=== PATIENT | male | born 1995 | race African-American/Black ===

== ENCOUNTER 2017-02-09 04:59 | Emergency (ER) | payer OTHER ==
[~2017-02-09] VITALS: Ht 185.4 cm; Wt 70.5 kg
--- NOTE | 2017-02-09 06:20 | REPUSA ---
HISTORY: Trauma. COMPARISON: Not provided. TECHNIQUE: Multiple thin section helically-acquired axially-displayed and helically acquired coronall y displayed computed tomographic images of the face are obtained from the mandible through the fronta l sinuses, with images obtained at soft tissue and bone window. 2D reformatted images were performed. FINDINGS: Acute right parasymphyseal fracture of the mandible. Acute oblique mildly displaced fracture of the right ascending ramus of the mandible. Overlying soft tissue edema or swelling. Chronic mucosal inflammatory changes in the maxillary sinuses and ethmoid air cells. Air-fluid level in the left maxillary sinus. IMPRESSION: Right mandible fractures as above. Effusion in the left maxillary sinus. Soft tissue edema. Chronic sinusitis. Thank you for your kind referral of this patient
--- NOTE | 2017-02-09 07:50 | REPUSA ---
HISTORY: Trauma. COMPARISON: None. TECHNIQUE: Multiple thin-section contiguous helically-acquired axially-displayed computed tomographic images of the cervical spine are obtained from skull base inferiorly through T1, with images filmed at soft tissue and bone window. 2D Sagittal and coronal reformatted images are performed. FINDINGS: There is normal cervical vertebral body height and alignment on this supine, non-weight bearing exam. Vertebral body mineralization is normal. All of the intervertebral disc spaces have normal height and contour. There is no herniated nucleus p ulposus, canal or foraminal stenosis. No paraspinal masses or collections. IMPRESSION: Normal CT of the cervical spine. Thank you for your kind referral of this patient.
[2017-02-09] MEDS ORDERED: LIDOCAINE 2% W/EPIN INJ 20ML **PRES FREE INJ ONE (08:15)
[2017-02-09] MEDS ORDERED: IBUPROFEN 600 MG TAB PO ONE (08:15)
[2017-02-09] MEDS ORDERED: PERCOCET 5MG/325MG TAB PO ONE (08:15)
[2017-02-09] MEDS ORDERED: AUGMENTIN 875 MG TAB PO ONE (08:15)
[2017-02-09] MEDS ORDERED: PERC5TAB12 PO (08:19)
[2017-02-09] MEDS ORDERED: AUGM875T28 PO (08:19)
[2017-02-09] MEDS ORDERED: IBUP-1022 PO (08:19)
[2017-02-09 08:56] VITALS: BP 131/69
== END 2017-02-09 09:00 | disposition home or self-care (01) ==
LOC: M ED 04:59
DX: S01.511A Laceration without foreign body of lip, initial encounter (principal); S02.609A Fracture of mandible, unspecified, initial encounter for closed fracture; J34.89 Other specified disorders of nose and nasal sinuses; Y04.0XXA Assault by unarmed brawl or fight, initial encounter; Y92.410 Unspecified street and highway as the place of occurrence of the external cause; Y93.9 Activity, unspecified; Y99.9 Unspecified external cause status; J32.9 Chronic sinusitis, unspecified

== ENCOUNTER 2018-04-25 18:29 | Emergency (ER) | payer OTHER | END 2018-04-25 21:20 | disposition home or self-care (01) | LOC: M ED 18:29 | DX: S03.41XA Sprain of jaw, right side, initial encounter (principal); S05.12XA Contusion of eyeball and orbital tissues, left eye, initial encounter; Y04.0XXA Assault by unarmed brawl or fight, initial encounter; Y92.008 Other place in unspecified non-institutional (private) residence as the place of occurrence of the external cause | CPT/HCPCS: 70110 ==

== ENCOUNTER 2021-10-21 22:50 | Emergency (ER) | payer OTHER ==
[~2021-10-21] VITALS: Ht 185.4 cm; Wt 68.6 kg
[~2021-10-21 22:50] MED LIST: AUGM875T28 PO; IBUP-1022 PO; PERC5TAB12 PO
[2021-10-21] MEDS ORDERED: OMEP40CA4 PO (23:15)
[2021-10-22 01:57] LABS: BASO % 0.4 % (0.0-1.0); EOS # 0.2 10^3/uL (0.0-0.5); EOS % 2.7 % (0.0-3.0); HEMATOCRIT 44.3 % (42.0-52.0); HEMOGLOBIN 14.2 g/dl (13.5-17.5); LYMPH # 2.1 10^3/uL (1.5-5.0); LYMPH % 30.1 % (24.0-44.0); MEAN CORPUSCULAR HEMOGLOBIN 26.7 pg (27.0-33.0); MEAN CORPUSCULAR HGB CONC 32.1 g/dl (32.0-36.5); MEAN CORPUSCULAR VOLUME 83.3 fl (80.0-96.0); MONO # 0.4 10^3/uL (0.0-0.8); MONO % 5.6 % (2.0-8.0); NEUTROPHILS # 4.3 10^3/uL (1.5-8.5); NEUTROPHILS % 61.1 % (36.0-66.0); PLATELET COUNT, AUTOMATED 243 10^3/uL (150-450); RED BLOOD COUNT 5.32 10^6/uL (4.30-6.10)
[2021-10-22 02:34] LABS: ALBUMIN 4.5 GM/DL (3.2-5.2); ALT/SGPT 27 U/L (12-78); BILIRUBIN,DIRECT 0.1 MG/DL (0.0-0.2); BILIRUBIN,TOTAL 0.5 MG/DL (0.2-1.0); BLOOD UREA NITROGEN 14 MG/DL (7-18); CALCIUM LEVEL 10.4 MG/DL (8.5-10.1); CARBON DIOXIDE LEVEL 29 MEQ/L (21-32); CHLORIDE LEVEL 103 MEQ/L (98-107); CREATININE FOR GFR 1.16 MG/DL (0.70-1.30); GLOMERULAR FILTRATION RATE > 60.0 (>60); GLUCOSE, FASTING 87 MG/DL (70-100); LIPASE 89 U/L (73-393); POTASSIUM SERUM 4.3 MEQ/L (3.5-5.1); SODIUM LEVEL 139 MEQ/L (136-145); TOTAL PROTEIN 8.4 GM/DL (6.4-8.2)
[2021-10-22] MEDS ORDERED: ISOVUE-370 76% 100ML VIAL As Ordered ONE (08:16)
[2021-10-22 08:33] LABS: C REACTIVE PROTEIN QUANTITATIV < 0.30 MG/DL (0.00-0.30)
[2021-10-22] MEDS: GASTROGRAFIN SOLUTION 30ML PO SCH ×2 (08:50→09:56)
[2021-10-22 09:00] LABS: ERYTHROCYTE SEDIMENTATION RATE 2 mm/hr (0-15)
[2021-10-22 11:29] VITALS: BP 117/74
== END 2021-10-22 11:40 | disposition home or self-care (01) ==
LOC: M ED 22:50
DX: R10.9 Unspecified abdominal pain (principal); R19.7 Diarrhea, unspecified; K21.9 Gastro-esophageal reflux disease without esophagitis
CPT/HCPCS: 36415; 71046; 74018; 74177; 80048; 80076; 83690; 85025; 85652; 86140; 87507; 99284; Q9963; Q9967

== ENCOUNTER → 2021-12-30 | Outpatient (CLI) | payer OTHER ==
[~2021-12-30] MED LIST changes: +OMEP40CA4 PO
== END ==
LOC: M LABSMTC 10:45
PROVIDERS: ATTEND Anesthesiology
DX: Z01.818 Encounter for other preprocedural examination (principal); Z11.52 Encounter for screening for COVID-19

== ENCOUNTER 2022-01-03 07:59 | Day surgery (SDC) | payer OTHER ==
[~2022-01-03] VITALS: Ht 185.4 cm; Wt 66.7 kg
[~2022-01-03 07:59] MED LIST changes: +NS 1,000 ML IV ONE
[2022-01-03] MEDS ORDERED: GAVICHW PO (08:14)
[2022-01-03] MEDS ORDERED: propofoL 200 MG/20 ML VIAL As Ordered ONE ×2 (09:48→09:51)
[2022-01-03] MEDS ORDERED: LIDOCAINE 2% 100MG/5ML SDV (FOR ANES.) As Ordered ONE (09:48)
[2022-01-03 10:38] VITALS: BP 124/70
== END 2022-01-03 10:56 | disposition home or self-care (01) ==
LOC: M OPP 07:59
PROVIDERS: ATTEND Surgery
DX: R19.7 Diarrhea, unspecified (principal); K44.9 Diaphragmatic hernia without obstruction or gangrene; R13.10 Dysphagia, unspecified; K21.00 Gastro-esophageal reflux disease with esophagitis, without bleeding; F32.9 Major depressive disorder, single episode, unspecified; F41.9 Anxiety disorder, unspecified; Z79.899 Other long term (current) drug therapy

== ENCOUNTER → 2023-02-25 | Outpatient (CLI) | payer OTHER ==
[~2023-02-25] MED LIST changes: +GAVICHW PO; -NS 1,000 ML IV ONE
== END ==
LOC: M PLAIMG 12:49
PROVIDERS: ATTEND Internal Medicine
DX: J38.7 Other diseases of larynx (principal)